=== PATIENT | male | born 1940 | race Caucasian/White ===

== ENCOUNTER → 2018-12-22 17:38 | Outpatient (CLI) | payer MEDICARE, SELFPAY ==
--- NOTE | 2018-12-22 | DI.MRI.S_ITS ---
PROCEDURE: MR ANKLE RT WO CON INDICATIONS: RIGHT ACHILLES PAIN TECHNIQUE: Noncontrast sagittal T1 spin echo and T2 fast spin echo with fat saturation, axial proton density fast spin echo and T2 fast spin echo with fat saturation, coronal T1 spin echo and T2 fast spin echo with fat saturation through the ankle/hindfoot. COMPARISON: None. FINDINGS: Image quality: Excellent. Bones and joints: No bone marrow contusions or fractures. No hindfoot coalitions. No osteochondral injuries of the talar dome. Well-defined plantar continue enthesophyte is seen. No pathologic joint effusions. Diffuse ankle soft tissue swelling and edema is seen. Medial structures: The posterior tibialis, flexor digitorum longus, and flexor hallucis longus tendons are intact. The posterior tibial neurovascular bundle appears normal within the tarsal tunnel, without extrinsic mass effect. The deep layer (anterior and posterior tibiotalar ligaments) and superficial layer (tibionavicular, tibiospring, and tibiocalcaneal ligaments) of the deltoid ligament appear normal. The spring ligament components (superomedial calcaneonavicular, medioplantar oblique calcaneonavicular, and inferoplantar longitudinal ligaments) are intact. Lateral structures: The anterior talofibular, calcaneofibular, and posterior talofibular ligaments appear intact. More superiorly, the anterior and posterior tibiofibular ligaments appear intact, as is the intermalleolar ligament. The tibiofibular syndesmosis is normal in width at 2 mm or less. The peroneus longus and brevis tendons demonstrate normal location and morphology. Adjacent bony peroneal tubercle and retrotrochlear prominence are normal in size. The sinus tarsi demonstrates normal fatty signal, without edema, fibrosis, or cyst formation. Visualized sinus tarsi components (cervical ligament, interosseous talocalcaneal ligament, roots of the inferior extensor retinaculum) appear normal. The calcaneonavicular and calcaneocuboid components of the bifurcate ligament appear intact. The dorsal calcaneocuboid ligament appears intact. Anterior structures: The tibialis anterior, extensor hallucis longus, and extensor digitorum longus tendons appear intact. The dorsal talonavicular ligament appears intact. Posterior and plantar structures: There is thickening involving distal 9 cm segment of Achilles tendon with heterogeneous intrasubstance fluid signal suggestive of tendinosis and low-grade intrasubstance partial thickness tear. No full-thickness Achilles tendon rupture. Medial and lateral bands of the plantar fascia are of normal thickness. No abductor digiti quinti muscle atrophy to suggest Flynn neuropathy. IMPRESSION: 1. Tendinosis and low-grade intrasubstance partial thickness involving distal 9 cm segment of Achilles tendon extending to its insertion of the posterior calcaneus. No full-thickness Achilles tendon rupture. 2. Well-defined plantar calcaneal enthesophyte. No marrow edema. No fracture or dislocation. 3. Diffuse ankle soft tissue swelling. Dictated by: Merrill Castro M.D. on 12/23/2018 at 9:02 Approved by: Merrill Castro M.D. on 12/23/2018 at 9:22
== END ==
PROVIDERS: PCP Internal Medicine; Visit Provider Internal Medicine
DX: M25.571 Pain in right ankle and joints of right foot (principal); M25.471 Effusion, right ankle; M77.31 Calcaneal spur, right foot
CPT/HCPCS: 73721

== ENCOUNTER → 2019-11-15 14:44 | Outpatient (CLI) | payer MEDICARE, SELFPAY ==
[2019-11-16 13:01] LABS: COVID19 Sendout Not detected (Not Detect)
== END ==
PROVIDERS: PCP Internal Medicine; Visit Provider Physician Assistant
DX: Z11.9 Encounter for screening for infectious and parasitic diseases, unspecified (principal)
CPT/HCPCS: 87635

== ENCOUNTER → 2019-11-24 08:36 | Outpatient (CLI) | payer MEDICARE, SELFPAY ==
[2019-11-24 09:10] LABS: Bacteria Urine None Seen; RBC Urine None Seen (0-5/HPF); WBC Urine None Seen (0-5/HPF)
[2019-11-24 09:33] LABS: Add Manual Diff / Slide Review NO; Basophils Absolute Auto 0 /uL (0-100); Basophils Percent Auto 0.4 % (0-2); Eosinophils Absolute Auto 100 /uL (0-450); Eosinophils Percent Auto 2.5 % (2-4); Hematocrit 43.7 % (41-53); Hemoglobin 15.1 g/dL (13.5-17.5); Lymphocytes Absolute Auto 1300 /uL (1100-4500); Lymphocytes Percent Auto 30.4 % (25-40); Mean Corpuscular HGB Conc 34.6 % (30-36); Mean Corpuscular Hemoglobin 30.7 PG (26-34); Mean Corpuscular Volume 88.8 fL (80-100); Monocytes Absolute Auto 400 /uL (0-900); Monocytes Percent Auto 8.6 % (3-14); Neutrophils Absolute Auto 2500 /uL (1500-7000); Neutrophils Percent Auto 58.1 % (50-75); Platelet Count 150 X10^3/uL (150-400); Red Blood Cell Count 4.92 X10^6/uL (4.5-5.9); Red Cell Distribution Width 13.5 % (11.6-14.8); White Blood Cell Count 4.3 X10^3/uL (4.5-11.0)
[2019-11-24 09:36] LABS: Appearance Urine UA CLEAR; Bilirubin Urine UA NEGATIVE (NEGATIVE); Color Urine UA YELLOW; Glucose Urine UA NEGATIVE (Negative); Ketones Urine UA NEGATIVE (NEGATIVE); Leukocyte Esterase Urine UA NEGATIVE (NEGATIVE); Nitrite Urine UA NEGATIVE (Negative); Occult Blood Urine UA TRACE-LYSED (Negative); Protein Urine UA NEGATIVE (Negative); Specific Gravity Urine UA 1.015 (1.000-1.035); Urobilinogen Urine UA 0.2 E.U./dL (0.2); pH Urine UA 6.5 (4.5-8.0)
[2019-11-24 09:45] LABS: Culture Indicated Urine Cult Not Indicated; Urine Comments Microscopic Normal
[2019-11-24 10:06] LABS: Alanine Aminotransferase 27 IU/L (<50); Albumin 4.6 g/dL (3.5-5.0); Albumin Globulin Ratio 1.8 (1.0-2.8); Alkaline Phosphatase 61 U/L (38-126); Aspartate Aminotransferase 32 IU/L (17-59); BUN Creatinine Ratio 29.5 (6-22); Bilirubin Direct 0.1 mg/dL (0.0-0.4); Bilirubin Total 0.7 mg/dL (0.2-1.3); Blood Urea Nitrogen 26 mg/dL (9-20); Carbon Dioxide 33 mmol/L (22-32); Chloride 100 mmol/L (98-107); Cholesterol 121 mg/dL (140-199); Estimated Glomerular Filt Rate > 60.0 mL/min (>60); Globulin 2.5 g/dL (1.7-4.1); Glucose 100 mg/dL (80-110); HDL Cholesterol 47 mg/dL (40-60); HEMOLYSIS < 15 (0-50); LDL Cholesterol Calculated 57 mg/dL (<100); Lactate Dehydrogenase 427 U/L (313-618); Phosphorous 2.7 mg/dL (2.3-3.7); Potassium 3.9 mmol/L (3.4-5.1); Sodium 138 mmol/L (137-145); Total Protein 7.1 g/dL (6.3-8.2); Triglycerides 84 mg/dL (35-150); Uric Acid 6.6 mg/dL (3.5-8.5)
[2019-11-24 10:17] LABS: High Sensitivity CRP - Cardiac < 0.1 mg/L (1.0-3.0)
[2019-11-24 10:18] LABS: Vitamin D 25 Hydroxy (D3) 66.3 ng/mL (30.0-100.0)
[2019-11-24 10:25] LABS: Free T4, Direct Thyroxine 0.99 ng/dL (0.78-2.19); T4 Total Thyroxine 7.51 ug/dL (5.5-11.0); T7 (Free Thyroxine Index) 2.57 (1.65-3.89); Triiodothryronine T3 Uptake 34.2 % (23.5-40.5)
[2019-11-24 10:35] LABS: Prostate Specific Antigen 3.93 ng/mL (0.10-4.00)
[2019-11-24 10:38] LABS: Thyroid Stimulating Hormone 1.43 uIU/mL (0.47-4.68)
== END ==
PROVIDERS: PCP Internal Medicine; Referring Provider Internal Medicine; Visit Provider Internal Medicine
DX: Z12.5 Encounter for screening for malignant neoplasm of prostate (principal); E78.5 Hyperlipidemia, unspecified; R53.83 Other fatigue; G47.61 Periodic limb movement disorder; G25.81 Restless legs syndrome; G47.33 Obstructive sleep apnea (adult) (pediatric)
CPT/HCPCS: 36415; 80053; 80061; 81001; 82248; 82306; 83615; 84100; 84153; 84436; 84439; 84443; 84479; 84550; 85025; 86140; 99214

== ENCOUNTER 2020-04-19 15:37 | Emergency (ER) | payer MEDICARE, SELFPAY ==
[2020-04-19 16:07] VITALS: BP 176/74; PULSE 71; RESP 15; TEMP 37.2; O2SAT 99; BMI 23.0
--- NOTE | 2020-04-19 16:12 | DI.RAD.S_ITS ---
PROCEDURE: XR LUMBAR SPINE 2-3V INDICATIONS: lower back pain TECHNIQUE: 3 views of the lumbar spine were acquired. COMPARISON: None. FINDINGS: Bones: 5 [id number] vertebrae are present. There is normal bony alignment. No vertebral body compression fractures. No suspicious bony lesions. Multilevel degenerative disc space loss. Lower lumbar facet hypertrophy. Suspect lower lumbar canal stenosis. Soft tissues: Overlying bowel gas pattern is normal. No suspicious soft tissue calcifications. IMPRESSION: Lower lumbar facet hypertrophy. Suspect lower lumbar canal stenosis. No evidence acute bony abnormality of the lumbar spine. If clinical suspicion and/or symptoms persist, further assessment with repeat plain films, or advanced imaging (e.g., CT, MRI, or bone scan) may be helpful for further assessment. Dictated by: Emile Cope M.D. on 04/19/2020 at 16:29 Approved by: Emile Cope M.D. on 04/19/2020 at 16:30
[2020-04-19 18:55] VITALS: BP 168/80; PULSE 74; RESP 16; O2SAT 99
--- NOTE | 2020-04-19 19:00 | ED_ITS ---
HPI - Back Pain/Injury General Chief Complaint: Back Pain/Injury Stated Complaint: FELL ON MY HEAD BACK SPASM CLAMMY HANDS Time Seen by Provider: 04/19/20 18:46 Source: patient Limitations: no limitations History of Present Illness HPI Narrative: 80-year-old gentleman with a history of high blood pressure, hyperlipidemia, BPH and increased anxiety over the past number of weeks presents complaining of acute lumbar spine pain. He was sitting in his hot tub 3 days ago as he got out of the tub and was sitting on the edge of his bed he got slightly lightheaded fell forward and torqued the right side of his back. He did not hit his head and he did not lose consciousness. He was able to get up by himself without any difficulty. Over the ensuing 2 days he is noticing increasing pain and spasm. He went to of massage therapist this morning and became significantly anxious slightly increased pain mildly diaphoretic and tremulous and medics were called. They recommended an ER visit and his primary care physician agrees. They present at this time noting that he is essentially pain-free at rest and sitting and it is only movement with twisting or core support needed to stand that is causing him problems. He has no radicular sym ptoms. He does not complain of fevers, cough, chest pain, dyspnea, abdominal pain, constipation, lower extremity edema. He does note he has been increasingly anxious over the last month and has some upper shoulder tightness with mild occipital headaches that resolve nicely with a single Tylenol. Related Data Home Medications Medication Instructions Recorded Confirmed Atorvastatin Calcium (Lipitor) 20 mg PO HS #0 09/19/08 02/27/20 aspirin 81 mg PO QDAY #0 09/01/16 02/27/20 chlorthalidone 25 mg PO QDAY #0 09/01/16 02/27/20 famotidine [Pepcid AC] 10 mg PO QDAY #0 09/01/16 02/27/20 tamsulosin [Flomax] 0.4 mg PO QDAY #0 09/01/16 02/27/20 Resmed Airsense 10 CPAP #1 ea 01/11/19 02/27/20 Allergies Allergy/AdvReac Type Severity Reaction Status Date / Time No Known Drug Allergies Allergy Verified 04/19/20 16:07 Review of Systems Review of Systems Narrative: Remainder of review of systems including constitutional, ENT, cardiovascular, respiratory, GI, , musculoskeletal, skin, neurologic and psychiatric systems reviewed and are unremarkable except as noted in HPI. Patient History Medical History BPH (benign prostatic hyperplasia) Central sleep apnea GERD (gastroesophageal reflux disease) Hiatal hernia with gastroesophageal reflux Hyperlipidemia Hypertension Obstructive sleep apnea Periodic limb movement disorder (PLMD) Restless legs syndrome (RLS) Snoring Social History marital status: unmarried,living together (life partner Marek Calzada) details: living in [facility] household members: significant other lives independently: Yes caregiver/support person: No Smoking Status: Never smoker Smoking Status: Never smoker alcohol intake frequency: holidays/special occasions only Substance Use Type: does not use Exam Narrative Exam Narrative: General: Healthy appearing, in no acute distress. Able to give a complete and coherent history. Well-nourished well-developed HEENT: Moist mucous membranes, normal sclera with reactive pupils, Respiratory: Lungs are clear to auscultation, no wheezing no rales no rhonchi. Full and symmetrical air movement Cardiac: Regular rate and rhythm no murmurs no bruits Abdomen: Soft, nontender, good bowel tones, no flank pain Spine: Minor lumbar spasm on the right side without any midline bony point tenderness. Skin: Warm and dry, no rashes Neurologic: Grossly neurologically intact with no obvious asymmetries or abnormalities, no radicular complaints and once he is up and walking he has no difficulties (experiences pain in transitioning from sitting to standing) Extremities: No trauma, well perfused Psych: Cooperative, appropriate insight and affect Initial Vital Signs Initial Vital Signs: Vital Signs Temperature 98.9 F 04/19/20 16:07 Pulse Rate 71 04/19/20 16:07 Respiratory Rate 15 04/19/20 16:07 Blood Pressure 176/74 H 04/19/20 16:07 Pulse Oximetry 99 04/19/20 16:07 Course Orders Ordered: ED Orders 04/19/20 16:12 XR lumbar spine 2-3V Stat Vital Signs Vital signs: Vital Signs - 8 hr 04/19/20 16:07 04/19/20 18:55 Temperature 98.9 F Pulse Rate 71 74 Respiratory Rate 15 16 Blood Pressure 176/74 H 168/80 H Pulse Oximetry 99 99 [facility] - Back Pain/Injury Medical Records Attestation: I reviewed the patient's medical records. Imaging Data XR lumbar: Radiologist's Impression: FINDINGS: Bones: 5 [id number] vertebrae are present. There is normal bony alignment. No vertebral body compression fractures. No suspicious bony lesions. Multilevel degenerative disc space loss. Lower lumbar facet hypertrophy. Suspect lower lumbar canal stenosis. Soft tissues: Overlying bowel gas pattern is normal. No suspicious soft tissue calcifications. IMPRESSION: Lower lumbar facet hypertrophy. Suspect lower lumbar canal stenosis. No evidence acute bony abnormality of the lumbar spine. If clinical suspicion and/or symptoms persist, further assessment with repeat plain films, or advanced imaging (e.g., CT, MRI, or bone scan) may be helpful for further assessment. Dictated by: Emile Cope M.D. on 04/19/2020 at 16:29 [facility] Narrative Medical decision making narrative: Pleasant 80-year-old gentleman with increasing anxiety over the last month tensing more creating some occipital headaches that are resolved with Tylenol. He notes when he gets more anxious still get slightly diaphoretic and tremulous. Three days ago with the fall from his bed he is now experiencing some low back pain. The mild diaphoresis and tremulousness do not seem to be the reason or even related to the fall. He has a mild acute back strain it is worse with twisting and standing motion. Increasing anxiety and has follow-up with his primary care physician in the near future. No evidence for acute coronary findings, congestive heart failure, infectious etiology or acute compression fractures. He is safe for home discharge Discharge Plan Departure Patient Disposition: Home Clinical Impression: Lumbar back pain Instructions: DI for Back Strain or Sprain Activity Restrictions/Additional Instructions: Thank you for coming in today and for being so patient with a long wait. You do have moderate amount of spasm on the left side of your back and you do not have a compression fracture. With that fall 3 days ago you clearly stranger back and it is responding appropriately. Using the brace to help with pain is appropriate. Using Tylenol if the pain is worse can also be helpful. Being mobile will help you heal so I do encourage you to do some gentle walking. I suspect you should be able to get back to your manual therapist by a Wednesday or Wednesday of next week so that she can begin to help with some of the muscle spasm and pain. If your having worsening symptoms, new findings, recurrent episodes of the eddie phoresis or shaking you do need to return to the emergency department and we do need to do a more thorough evaluation. I wish you the best Prescriptions: No Action Atorvastatin Calcium (Lipitor) 20 mg PO HS Qty: 0 RF: 0 famotidine [Pepcid AC] 10 MG tablet 10 mg PO QDAY Qty: 0 RF: 0 chlorthalidone 25 MG tablet 25 mg PO QDAY Qty: 0 RF: 0 tamsulosin [Flomax] 0.4 MG capsule,extended release 24hr 0.4 mg PO QDAY Qty: 0 RF: 0 aspirin 81 MG tablet,chewable 81 mg PO QDAY Qty: 0 RF: 0 (DME) Resmed Airsense 10 CPAP Qty: 1 RF: 0 Referrals: Jeffrey Kelly MD [Primary Care Provider] -
== END 2020-04-19 19:10 | disposition home or self-care (01) ==
PROVIDERS: Emergency Provider Emergency Medicine; PCP Internal Medicine
DX: M54.5 Low back pain (principal); I10 Essential (primary) hypertension; E78.5 Hyperlipidemia, unspecified; N40.0 Benign prostatic hyperplasia without lower urinary tract symptoms; F41.9 Anxiety disorder, unspecified
CPT/HCPCS: 72100; 99281; 99283

== ENCOUNTER → 2020-10-31 07:34 | Outpatient (CLI) | payer MEDICARE, SELFPAY ==
--- NOTE | 2020-10-31 | DI.US.S_ITS ---
PROCEDURE: US SCROTUM INDICATIONS: SCROTAL PAIN TECHNIQUE: Real-time scanning was performed of the scrotum and testicles, with image documentation. Color and pulse Doppler interrogation was performed of both testicles. COMPARISON: None. FINDINGS: Right: Testicle is normal in size at 3.7 x 2.4 x 1.3 cm, and homogenous in echotexture. Epididymis is normal in overall size and vascularity. Several small epididymal cysts, the largest measuring up to 7 mm. No hydrocele or varicoceles. There is a simple cyst within the scrotum lateral to the right testicle measuring 4 mm. Overlying scrotal skin is normal in thickness. Left: Testicle is normal in size at 3.6 x 2.8 x 1.5 cm, and homogeneous in echotexture. There is a 2 mm round homogeneously hyperechoic avascular lesion within the inferior aspect of the right testicle. No suspicious shadow. Epididymis is normal in overall size and morphology. 3 mm epididymal head cyst. No hydrocele or varicoceles. Overlying scrotal skin is normal in thickness. Doppler: Color and pulse Doppler demonstrate normal and symmetric arterial flow in both testicles. IMPRESSION: 1. Several small epididymal cysts on the right, the largest measuring up to 7 mm. 2. No other explanation for right scrotal pain. 3. Incidental note made of a 2 mm hyperechoic intratesticular lesion on the left, potentially calcification or tiny lipoma. 12 month follow-up recommended. 4. Symmetric testicular size and vascularity. Dictated by: Eve Adams M.D. on 10/31/2020 at 12:24 Approved by: Eve Adams M.D. on 10/31/2020 at 12:29
== END ==
PROVIDERS: PCP Internal Medicine; Referring Provider Internal Medicine; Visit Provider Internal Medicine
DX: N50.82 Scrotal pain (principal); N50.3 Cyst of epididymis; N50.9 Disorder of male genital organs, unspecified
CPT/HCPCS: 76870

== ENCOUNTER → 2020-11-26 06:51 | Outpatient (CLI) | payer MEDICARE, SELFPAY ==
[2020-11-26 07:22] LABS: Bacteria Urine None Seen; RBC Urine None Seen (0-5/HPF); WBC Urine None Seen (0-5/HPF)
[2020-11-26 09:15] LABS: Add Manual Diff / Slide Review NO; Basophils Absolute Auto 0 /uL (0-100); Basophils Percent Auto 0.5 % (0-2); Eosinophils Absolute Auto 200 /uL (0-450); Eosinophils Percent Auto 3.6 % (2-4); Hematocrit 44.1 % (41-53); Hemoglobin 14.9 g/dL (13.5-17.5); Lymphocytes Absolute Auto 1400 /uL (1100-4500); Lymphocytes Percent Auto 29.1 % (25-40); Mean Corpuscular HGB Conc 33.9 % (30-36); Mean Corpuscular Volume 88.6 fL (80-100); Monocytes Absolute Auto 300 /uL (0-900); Monocytes Percent Auto 6.9 % (3-14); Neutrophils Absolute Auto 2800 /uL (1500-7000); Neutrophils Percent Auto 59.9 % (50-75); Platelet Count 153 X10^3/uL (150-400); Red Blood Cell Count 4.98 X10^6/uL (4.5-5.9); Red Cell Distribution Width 13.8 % (11.6-14.8); White Blood Cell Count 4.7 X10^3/uL (4.5-11.0)
[2020-11-26 09:33] LABS: Alanine Aminotransferase 26 IU/L (<50); Albumin 4.3 g/dL (3.5-5.0); Albumin Globulin Ratio 1.7 (1.0-2.8); Alkaline Phosphatase 60 U/L (38-126); Aspartate Aminotransferase 31 IU/L (17-59); BUN Creatinine Ratio 25.8 (6-22); Bilirubin Direct 0.1 mg/dL (0.0-0.4); Bilirubin Total 0.4 mg/dL (0.2-1.3); Blood Urea Nitrogen 23 mg/dL (9-20); Carbon Dioxide 31 mmol/L (22-32); Chloride 102 mmol/L (98-107); Estimated Glomerular Filt Rate > 60.0 mL/min (>60); Globulin 2.5 g/dL (1.7-4.1); Glucose 105 mg/dL (80-110); HEMOLYSIS < 15 (0-50); Lactate Dehydrogenase 394 U/L (313-618); Potassium 3.6 mmol/L (3.4-5.1); Sodium 138 mmol/L (137-145); Total Protein 6.8 g/dL (6.3-8.2); Uric Acid 6.5 mg/dL (3.5-8.5)
[2020-11-26 09:37] LABS: High Sensitivity CRP - Cardiac < 0.3 mg/L (1.0-3.0)
[2020-11-26 09:43] LABS: T4 Total Thyroxine 7.26 ug/dL (5.5-11.0); T7 (Free Thyroxine Index) 2.65 (1.65-3.89); Triiodothryronine T3 Uptake 36.5 % (23.5-40.5)
[2020-11-26 09:53] LABS: Erythrocyte Sedimentation Rate 1 MM/HR (0-15)
[2020-11-26 09:54] LABS: Prostate Specific Antigen Scrn 3.66 ng/mL (0.1-4.0)
[2020-11-26 09:57] LABS: Ferritin 46 ng/mL (18-464)
[2020-11-26 13:12] LABS: Thyroid Stimulating Hormone 2.28 uIU/mL (0.47-4.68)
[2020-11-26 14:03] LABS: Appearance Urine UA CLEAR; Bilirubin Urine UA NEGATIVE (NEGATIVE); Color Urine UA YELLOW; Glucose Urine UA TRACE g/dL (Negative); Ketones Urine UA NEGATIVE (NEGATIVE); Leukocyte Esterase Urine UA NEGATIVE (NEGATIVE); Nitrite Urine UA NEGATIVE (Negative); Occult Blood Urine UA NEGATIVE (Negative); Protein Urine UA NEGATIVE (Negative); Urobilinogen Urine UA 0.2 E.U./dL (0.2)
[2020-11-26 14:07] LABS: Culture Indicated Urine Cult Not Indicated; Urine Comments Microscopic Normal
[2020-11-28 20:37] LABS: Cholesterol HDL Ratio 3.3 ratio (0.0-5.0); Cholesterol,Total 133 mg/dL (100-199); HDL Cholesterol 40 mg/dL (>39); LDL Cholesterol Cal 76 mg/dL (0-99); Triglycerides 85 mg/dL (0-149); VLDL Cholesterol Cal 17 mg/dL (5-40)
== END ==
PROVIDERS: PCP Internal Medicine; Referring Provider Internal Medicine; Visit Provider Internal Medicine
DX: I10 Essential (primary) hypertension (principal); Z12.5 Encounter for screening for malignant neoplasm of prostate; E78.2 Mixed hyperlipidemia; R53.83 Other fatigue
CPT/HCPCS: 36415; 80053; 80061; 81001; 82248; 82728; 83615; 84436; 84443; 84479; 84550; 85025; 85651; 86140; G0103

== ENCOUNTER → 2021-12-26 06:43 | Outpatient (CLI) | payer MEDICARE, SELFPAY ==
[2021-12-26 08:38] LABS: Add Manual Diff / Slide Review NO; Basophils Absolute Auto 0 /uL (0-100); Basophils Percent Auto 0.5 % (0-2); Eosinophils Absolute Auto 100 /uL (0-450); Eosinophils Percent Auto 3.1 % (2-4); Hematocrit 43.7 % (41-53); Hemoglobin 15.1 g/dL (13.5-17.5); Lymphocytes Absolute Auto 1200 /uL (1100-4500); Lymphocytes Percent Auto 29.8 % (25-40); Mean Corpuscular HGB Conc 34.5 % (30-36); Mean Corpuscular Hemoglobin 30.3 PG (26-34); Mean Corpuscular Volume 87.6 fL (80-100); Monocytes Absolute Auto 300 /uL (0-900); Monocytes Percent Auto 7.6 % (3-14); Neutrophils Absolute Auto 2500 /uL (1500-7000); Platelet Count 150 X10^3/uL (150-400); Red Blood Cell Count 4.99 X10^6/uL (4.5-5.9); White Blood Cell Count 4.2 X10^3/uL (4.5-11.0)
[2021-12-26 09:00] LABS: BUN Creatinine Ratio 20.5 (6-22); Blood Urea Nitrogen 18 mg/dL (9-20); Carbon Dioxide 32 mmol/L (22-32); Chloride 97 mmol/L (98-107); Estimated Glomerular Filt Rate > 60 mL/min (>60); Glucose 101 mg/dL (80-110); Sodium 140 mmol/L (137-145)
[2021-12-26 09:01] LABS: Alanine Aminotransferase 33 IU/L (<50); Albumin 4.2 g/dL (3.5-5.0); Albumin Globulin Ratio 1.5 (1.0-2.8); Alkaline Phosphatase 63 U/L (38-126); Aspartate Aminotransferase 30 IU/L (17-59); Bilirubin Direct 0.1 mg/dL (0.0-0.4); Bilirubin Total 0.7 mg/dL (0.2-1.3); Calcium 9.8 mg/dL (8.4-10.2); Cholesterol 143 mg/dL (140-199); Globulin 2.8 g/dL (1.7-4.1); HDL Cholesterol 44 mg/dL (40-60); HEMOLYSIS < 15 (0-50); LDL Cholesterol Calculated 71 mg/dL (<100); Lactate Dehydrogenase 415 U/L (313-618); Potassium 4.1 mmol/L (3.4-5.1); Triglycerides 139 mg/dL (35-150)
[2021-12-26 09:04] LABS: High Sensitivity CRP - Cardiac < 0.3 mg/L (1.0-3.0)
[2021-12-26 10:34] LABS: Erythrocyte Sedimentation Rate 4 MM/HR (0-15)
== END ==
PROVIDERS: PCP Internal Medicine; Referring Provider Internal Medicine; Visit Provider Internal Medicine
DX: E78.5 Hyperlipidemia, unspecified (principal); Z12.5 Encounter for screening for malignant neoplasm of prostate; I10 Essential (primary) hypertension; R97.20 Elevated prostate specific antigen [PSA]; R53.83 Other fatigue
CPT/HCPCS: 36415; 80053; 80061; 82248; 83615; 85025; 85651; 86140; G0103

== ENCOUNTER → 2022-01-31 07:56 | Outpatient (CLI) | payer MEDICARE, SELFPAY ==
[2022-01-31 08:58] LABS: Appearance Urine UA CLEAR; Bilirubin Urine UA NEGATIVE (NEGATIVE); Color Urine UA YELLOW; Glucose Urine UA NEGATIVE (Negative); Ketones Urine UA NEGATIVE (NEGATIVE); Leukocyte Esterase Urine UA NEGATIVE (NEGATIVE); Nitrite Urine UA NEGATIVE (Negative); Occult Blood Urine UA NEGATIVE (Negative); Protein Urine UA NEGATIVE (Negative); Urobilinogen Urine UA 0.2 E.U./dL (0.2)
[2022-01-31 10:19] LABS: Bacteria Urine None Seen; Culture Indicated Urine Cult Not Indicated; RBC Urine None Seen (0-5/HPF); WBC Urine None Seen (0-5/HPF)
== END ==
PROVIDERS: PCP Internal Medicine; Referring Provider Internal Medicine; Visit Provider Internal Medicine
DX: R30.0 Dysuria (principal)
CPT/HCPCS: 81001

== ENCOUNTER → 2022-02-03 09:37 | Outpatient (CLI) | payer MEDICARE, SELFPAY ==
--- NOTE | 2022-02-03 | DI.US.S_ITS ---
PROCEDURE: US SCROTUM INDICATIONS: RIGHT TESTICULAR PAIN TECHNIQUE: Real-time scanning was performed of the scrotum and testicles, with image documentation. Color and pulse Doppler interrogation was performed of both testicles. COMPARISON: [facility], , US SCROTUM, 10/31/2020, 8:12. FINDINGS: Right: Testicle is normal in size at 3.9 x 1.0 x 2.2 cm, and homogenous in echotexture. Lateral scrotal wall and tiny epididymal head cyst are noted. No hydrocele or varicoceles. Overlying scrotal skin is normal in thickness. Left: Testicle is normal in size at 3.5 x 1.4 x 2.7 cm, and homogeneous in echotexture. An avascular, 2 mm, round hyperechoic mass in the distal left testicle is again seen. Tiny epididymal head cysts. Epididymis is otherwise normal in overall size and morphology. No hydrocele or varicoceles. Overlying scrotal skin is normal in thickness. Doppler: Color and pulse Doppler demonstrate normal and symmetric arterial flow in both testicles. IMPRESSION: 1. Stable 2 mm homogeneously echogenic focus in the left testicle. Given lack of surrounding hypoechogenicity, or significant size change, this is less likely to be malignant and continued surveillance is recommended Dictated by: Eve Adams M.D. on 02/03/2022 at 14:23 Approved by: Eve Adams M.D. on 02/03/2022 at 14:37
== END ==
PROVIDERS: PCP Internal Medicine; Referring Provider Internal Medicine; Visit Provider Internal Medicine
DX: N50.811 Right testicular pain (principal)
CPT/HCPCS: 76870

== ENCOUNTER → 2022-09-22 06:49 | Outpatient (CLI) | payer MEDICARE, SELFPAY ==
[2022-09-24 10:55] LABS: PSA Free % 35.6 % (.); PSA, Total 4.3 ng/mL (0.0-4.0)
== END ==
PROVIDERS: PCP Pediatrics Pediatric Gastroenterology; Referring Provider Urology; Visit Provider Urology
DX: R97.20 Elevated prostate specific antigen [PSA] (principal)
CPT/HCPCS: 36415; 84153; 84154

== ENCOUNTER → 2022-11-24 06:45 | Outpatient (CLI) | payer MEDICARE, SELFPAY ==
[2022-11-24 08:25] LABS: Add Manual Diff / Slide Review NO; Basophils Absolute Auto 0 /uL (0-100); Basophils Percent Auto 0.6 % (0-2); Eosinophils Absolute Auto 100 /uL (0-450); Eosinophils Percent Auto 3.2 % (2-4); Hematocrit 40.9 % (41-53); Hemoglobin 14.2 g/dL (13.5-17.5); Lymphocytes Absolute Auto 1300 /uL (1100-4500); Lymphocytes Percent Auto 29.4 % (25-40); Mean Corpuscular HGB Conc 34.8 % (30-36); Mean Corpuscular Hemoglobin 30.5 PG (26-34); Mean Corpuscular Volume 87.7 fL (80-100); Monocytes Absolute Auto 400 /uL (0-900); Monocytes Percent Auto 8.1 % (3-14); Neutrophils Absolute Auto 2600 /uL (1500-7000); Neutrophils Percent Auto 58.7 % (50-75); Platelet Count 161 X10^3/uL (150-400); Red Blood Cell Count 4.67 X10^6/uL (4.5-5.9); Red Cell Distribution Width 13.3 % (11.6-14.8); White Blood Cell Count 4.4 X10^3/uL (4.5-11.0)
[2022-11-24 08:47] LABS: Alanine Aminotransferase 28 IU/L (<50); Albumin 4.3 g/dL (3.5-5.0); Albumin Globulin Ratio 1.4 (1.0-2.8); Alkaline Phosphatase 62 U/L (38-126); Aspartate Aminotransferase 34 IU/L (17-59); BUN Creatinine Ratio 21.5 (6-22); Bilirubin Total 0.7 mg/dL (0.2-1.3); Blood Urea Nitrogen 17 mg/dL (9-20); Calcium 9.7 mg/dL (8.4-10.2); Carbon Dioxide 32 mmol/L (22-32); Chloride 98 mmol/L (98-107); Estimated Glomerular Filt Rate > 60 mL/min (>60); Globulin 3.1 g/dL (1.7-4.1); Glucose 99 mg/dL (80-110); HEMOLYSIS 39 (0-50); Lipase 127 U/L (23-300); Potassium 4.1 mmol/L (3.4-5.1); Sodium 136 mmol/L (137-145); Total Protein 7.4 g/dL (6.3-8.2)
[2022-11-24 09:15] LABS: Thyroid Stimulating Hormone 1.98 uIU/mL (0.47-4.68)
[2022-11-25 04:24] LABS: x Labcorp Estim. Avg Glu (eAG) 114 mg/dL (.); x Labcorp Hemoglobin A1c 5.6 % (4.8-5.6)
[2022-11-25 09:17] LABS: PSA Free % 36.4 % (.); PSA, Total 4.7 ng/mL (0.0-4.0)
== END ==
PROVIDERS: PCP Internal Medicine; Referring Provider Internal Medicine; Visit Provider Internal Medicine
DX: Z00.00 Encounter for general adult medical examination without abnormal findings (principal); I10 Essential (primary) hypertension; E78.5 Hyperlipidemia, unspecified; R97.20 Elevated prostate specific antigen [PSA]; Z13.228 Encounter for screening for other metabolic disorders
CPT/HCPCS: 36415; 80053; 83036; 83690; 84153; 84154; 84443; 85025

== ENCOUNTER → 2023-04-29 10:34 | Outpatient (CLI) | payer MEDICARE, SELFPAY | LOC: LAB 10:36 | PROVIDERS: PCP Internal Medicine; Referring Provider Urology; Visit Provider Urology | DX: R97.20 Elevated prostate specific antigen [PSA] (principal) | CPT/HCPCS: 36415; 84153; 84154 ==

== ENCOUNTER → 2023-12-24 07:23 | Outpatient (CLI) | payer MEDICARE, SELFPAY ==
[2023-12-24 08:14] LABS: Add Manual Diff / Slide Review NO; Basophils Absolute Auto 0 /uL (0-100); Basophils Percent Auto 0.5 % (0-2); Eosinophils Absolute Auto 200 /uL (0-450); Eosinophils Percent Auto 3.4 % (2-4); Hematocrit 39.9 % (41-53); Hemoglobin 13.7 g/dL (13.5-17.5); Lymphocytes Absolute Auto 1400 /uL (1100-4500); Mean Corpuscular HGB Conc 34.3 % (30-36); Mean Corpuscular Hemoglobin 30.3 PG (26-34); Mean Corpuscular Volume 88.4 fL (80-100); Monocytes Absolute Auto 400 /uL (0-900); Monocytes Percent Auto 8.5 % (3-14); Neutrophils Absolute Auto 2500 /uL (1500-7000); Neutrophils Percent Auto 56.6 % (50-75); Platelet Count 139 X10^3/uL (150-400); Red Blood Cell Count 4.51 X10^6/uL (4.5-5.9); Red Cell Distribution Width 13.8 % (11.6-14.8); White Blood Cell Count 4.5 X10^3/uL (4.5-11.0)
[2023-12-24 08:37] LABS: Alanine Aminotransferase 24 IU/L (<50); Albumin 4.1 g/dL (3.5-5.0); Albumin Globulin Ratio 1.6 (1.0-2.8); Alkaline Phosphatase 71 U/L (38-126); Aspartate Aminotransferase 29 IU/L (17-59); BUN Creatinine Ratio 22.2 (6-22); Bilirubin Total 0.7 mg/dL (0.2-1.3); Blood Urea Nitrogen 20 mg/dL (9-20); Calcium 9.9 mg/dL (8.4-10.2); Carbon Dioxide 28 mmol/L (22-32); Chloride 103 mmol/L (98-107); Estimated Glomerular Filt Rate > 60 mL/min (>60); Globulin 2.5 g/dL (1.7-4.1); Glucose 98 mg/dL (80-110); HEMOLYSIS 16 (0-50); Potassium 4.5 mmol/L (3.4-5.1); Sodium 136 mmol/L (137-145); Total Protein 6.6 g/dL (6.3-8.2)
[2023-12-24 08:42] LABS: High Sensitivity CRP - Cardiac 0.4 mg/L (1.0-3.0)
[2023-12-24 08:52] LABS: Vitamin D 25 Hydroxy (D3) 67.3 ng/mL (30.0-100.0)
[2023-12-24 09:02] LABS: TSH w/ Reflex to FT4 1.72 uIU/mL (0.47-4.68)
[2023-12-24 10:20] LABS: Vitamin B12 591 pg/mL (239-931)
[2023-12-25 03:37] LABS: Apolipoprotein B 56 mg/dL (<90)
[2023-12-25 09:15] LABS: PSA Free % 40.2 % (.); PSA, Total 4.2 ng/mL (0.0-4.0)
[2023-12-26 16:26] LABS: Cholesterol, Total 115 mg/dL (100-199); HDL-Cholesterol 46 mg/dL (>39); HDL-Particle (Total) 30.6 umol/L (>=30.5); LDL Particle 704 nmol/L (<1000); LDL Size 20.4 nm (>20.5); LDL-Cholsterol 56 mg/dL (0-99); LP-IR Score 46 (<=45); Small LDL- Particle 358 nmol/L (<=527); Triglycerides 60 mg/dL (0-149)
[2023-12-28 03:11] LABS: Lipoprotein (a) 83.5 nmol/L (<75.0)
== END ==
PROVIDERS: PCP Internal Medicine; Referring Provider Internal Medicine; Visit Provider Internal Medicine
DX: Z00.00 Encounter for general adult medical examination without abnormal findings (principal); I25.10 Atherosclerotic heart disease of native coronary artery without angina pectoris; E55.9 Vitamin D deficiency, unspecified; M85.80 Other specified disorders of bone density and structure, unspecified site; R97.20 Elevated prostate specific antigen [PSA]; Z12.5 Encounter for screening for malignant neoplasm of prostate
CPT/HCPCS: 36415; 80053; 80061; 82172; 82306; 82607; 83695; 83704; 84153; 84154; 84443; 85025; 86140